=== PATIENT | female | born 1995 | race Caucasian/White ===

== ENCOUNTER 2016-09-13 15:55 | Emergency (ER) | payer OTHER, BC ==
[2016-09-13] MEDS ORDERED: MORPHINE SULFATE 2 MG/1 ML IV ONE (16:20)
[2016-09-13] MEDS ORDERED: Sodium Chloride 0.9% 1,000 ML PRIMARY IV ONE (16:20)
[2016-09-13] MEDS ORDERED: NORMAL SALINE 10 ML SYRINGE FLUSH IVP PRN (16:20)
[2016-09-13] MEDS ORDERED: ONDANSETRON 4 MG/2 ML VIAL IVP ONE ×2 (16:20→20:29)
[2016-09-13 16:38] VITALS: TEMP 97.1
[2016-09-13 17:00] VITALS: RESP 16
[2016-09-13 17:07] LABS: HEMATOCRIT 40.8 % (37.0-47.0); HEMOGLOBIN 14.4 g/dL (12.0-16.0); MEAN CORPUSCULAR HEMOGLOBIN 29.6 PG (27-31); MEAN CORPUSCULAR VOLUME 83.8 FL (81-99); RED BLOOD COUNT 4.87 10^6/uL (4.20-5.40)
[2016-09-13 17:08] LABS: EOSINOPHILS % (AUTO) 0.8 % (0-8); MEAN CORPUSCULAR HGB CONC 35.3 g/dL (33-37); MEAN PLATELET VOLUME 9.2 FL (7.4-12.2); MONOCYTES % (AUTO) 7.7 % (5-15); NEUTROPHILS % (AUTO) 62.9 % (50-80)
[2016-09-13 17:09] LABS: BASOPHILS # (AUTO) 0.07 10*3/UL; BASOPHILS % (AUTO) 0.7 % (0-1); EOSINOPHILS # (AUTO) 0.08 10*3/UL; LYMPHOCYTES # (AUTO) 2.69 10*3/uL; MONOCYTES # (AUTO) 0.75 10*3/UL (0.3-0.8); NEUTROPHILS # (AUTO) 6.08 10*3/UL; PLATELET MORPHOLOGY COMMENT NORMAL MORPHOLOGY (NORM); RBC MORPHOLOGY COMMENT NORMAL MORPHOLOGY (NORM); WBC MORPHOLOGY COMMENT NORMAL MORPHOLOGY (NORM)
[2016-09-13 17:10] LABS: BILIRUBIN,URINE NEGATIVE (NEG); CLARITY,URINE CLEAR (CLEAR); COLOR,URINE YELLOW; GLUCOSE, URINE (UA) NEGATIVE (NEG); NITRATE,URINE NEGATIVE (NEG); OCCULT BLOOD,URINE SMALL (NEG); PROTEIN,URINE NEGATIVE (NEG); UROBILINOGEN,URINE 0.2 EU/dL (0.2)
[2016-09-13 17:15] LABS: SQUAMOUS EPITHELIAL CELL,UR MANY; URINE SAMPLE TYPE VOIDED SPECIMEN; WBC,URINE 0-1
[2016-09-13 17:28] LABS: BLOOD UREA NITROGEN 10 mg/dL (7-22); BUN/CREATININE RATIO 11.11 (6-20); C-REACTIVE PROTEIN 1.4 mg/dL (0.0-0.9); CALCIUM 9.1 mg/dL (8.7-10.7); EST GLOMERULAR FILTRATION > 60 (>60 ml/min/1.73m(2)); LIPASE 86 IU/L (23-300); SERUM ALBUMIN 4.1 g/dL (3.5-4.8)
[2016-09-13] MEDS ORDERED: KETOROLAC 15 MG/1 ML VIAL IVP ONE (17:43)
[2016-09-13] MEDS ORDERED: MORPHINE SULFATE 2 MG/1 ML IVP ONE (17:44)
--- NOTE | 2016-09-13 18:46 | DI ---
PELVIC ULTRASOUND, 09/13/2016 5:44 PM Clinical History: Pelvic pain. Previous Exam: None at this facility. Technique: Transabdominal scans are performed. The uterus measures 45 x 60 x 80 mm and has a normal appearance. The central uterine stripe measures 7 mm. The ovaries are normal and demonstrate vascular flow. There are no fluid collections or masses. Reading: Normal pelvic ultrasound. Both ovaries are visualized and demonstrate normal flow.
[2016-09-13] MEDS ORDERED: fentaNYL Inj 100 MCG/2 ML VIAL IVP ONE (18:51)
[2016-09-13] MEDS ORDERED: oxyCODONE-ACETAMINOPHEN 5-325 TAB PO ONE (19:43)
[2016-09-13] MEDS ORDERED: cefTRIAXone Inj 500 MG in Sodium Chloride 0.9% 100 ML IV ONE (19:43)
[2016-09-13] MEDS ORDERED: HYDROmorphone 2 MG/1 ML IVP ONE (20:29)
[2016-09-13] MEDS ORDERED: oxyCODONE-ACETAMINOPHEN 5-325 TAB PO SCH (20:30)
[2016-09-13] MEDS ORDERED: DOXYCYCLINE HYCLATE 100 MG CAPSULE PO SCH (20:30)
--- NOTE | 2016-09-13 21:38 | DI ---
HISTORY: Abdominal pain. COMPARISON: None available. TECHNIQUE: Contrast-enhanced images of the abdomen and pelvis were obtained and submitted for interp retation. FINDINGS: Limited sections of the lung bases demonstrate no focal pulmonary mass. There are left ba silar opacities. The liver and spleen return a normal attenuation. The gallbladder is the of calculi. The pancreas i s grossly unremarkable. Both kidneys enhance normally. There is no focal adrenal mass. The aorta a nd IVC demonstrate no acute findings. The stomach is collapsed. There is moderate to severe constipation. There are sutures in the lower quadrant. There is no free air or free fluid. The uterus is anteverted. Bilateral adnexal densities are favored to be ovarian in origin. The endo metrium is thickened. The urinary bladder is distended. Correlation pelvic ultrasound recommended. There is fecal retention the rectum. Thickening of the sigmoid colon is probably due to peristalsis. Consider correlation peristalsis. The visualized osseous structures demonstrate no destructive abnormality. IMPRESSION: 1. No CT evidence of acute intra-abdominal or pelvic pathology. 2. Left basilar opacities.
--- NOTE | 2016-09-13 23:26 | PDOC ---
Abdomen/Flank HPI - General Chief Complaint: Abdomen Pain Stated Complaint: Abd. pain w/ some bleeding Date Seen by Provider: 09/13/16 Time Seen by Provider: 16:05 Source: POSITIVE: Patient Exam Limitations: POSITIVE: No limitations Nurse's Notes Reviewed & Considered: Yes - History of Present Illness Initial Comments: The patient is a 21-year-old female with no prior who presents to the emergency department with lower abdominal pain and vaginal bleeding. She states that she presented to her vice president of news in [place] with complaints of pelvic pain and vaginal bleeding. Her physician had done a pelvic exam and subsequently referred her to the emergency room to rule out possible ectopic . The patient reports that she does take oral control pills. She has not had a positive test. She states that she had some whitish colored discharge for the past couple of days. Today she started spotting and having some vaginal bleeding. She also has developed lower abdominal pain which is primarily in the mid abdomen and not to one side or the other. The pain is worsened after urination however she does not have any burning with urination. She denies fevers or chills, nausea vomiting. She does have a history of arrhythmia and is currently not taking any medication for this as the medications that she took previously seem to make it worse. She does report some increased palpitations throughout the day today since onset of her pain. She has had previous appendectomy when she was young. Her physician in [place] had contacted Dr. Abdi here in [place] and he recommended that the patient come to the emergency room. - Patient Home Medications Home Medications: Home Medications Doxycycline Hyclate 100 mg PO Q12H #20 cap 09/13/16 Norgestimate-Ethinyl Estradiol [Mononessa] 1 each PO DAILY 09/13/16 oxyCODONE/APAP 5/325 Tab [Percocet 5/325 Tab] 1 - 2 tab PO Q6H PRN #15 tab - Patient Allergies Allergies/Adverse Reactions: Allergies Allergy/AdvReac Type Severity Reaction Status Date / Time No Known Allergies Allergy Verified 09/13/16 16:22 Past Medical History - heen HEENT History: Denies History Cardiovascular History: Arrhythmia Additional Cardiovasular History: extra beat- unknown has MD. Rader- hasn't had an appointment yet due to insurance. Palpatations- every day. Respiratory History: Denies History Gastrointestinal History: Denies History Genitourinary History: Denies History Endocrine History: Denies History Musculoskeletal History: Denies History Prosthesis or Implant: No Additional Musculoskeletal History: Rt. Hip surgeries x2 Neurological History: Denies History Blood Disorders: Denies History Psychiatric History: Denies History History of Sexually Transmitted Diseases: No Female Reproductive History: Denies History LMP: ending-02 of september : 0 Para: 0 Cancer History: Denies History In Past Year Been Physically Harmed or Verbally Threatened: No History of MDRO: No History of Other Communicable Diseases: No Tobacco Use: Never Smoker Alcohol Use: Occasionally Substance Use Type: None Previous Surgical History: Yes Type / Date of Surgery: Rt. Hip x2. apendectomy at 12y/o Anesthesia Reactions: No Malignant Hyperthermia: No Family History of Malignant Hyperthermia: No Significant Family History: No pertinent family hx Past Medical History Reviewed: Reviewed - No Changes ROS - Limitations ROS Limitations: No Limitations Constitution: DENIES: Chills, Fever Cardiovascular: REPORTS: Denies Cardiac Symptoms Respiratory: REPORTS: Denies Resp Symptoms Neurological: REPORTS: Denies Neuro Symptoms Gastrointestinal: REPORTS: Abdominal Pain, Nausea, Constipation (She reports chronic constipation although she states more recently her bowel movements have been more regular). DENIES: Vomitting, Diarrhea Musculoskeletal: REPORTS: Denies MS Symptoms Genitourinary: DENIES: Dysuria, Flank Pain, Hematuria, Difficulty Urinating Eyes: REPORTS: Denies Symptoms ENT: REPORTS: Denies Symptoms Skin: DENIES: Rash Abdominal/Flank Pain PE - General Appearance General Appearance: POSITIVE: Alert, Cooperative, No Acute Distress - HEENT HEENT: POSITIVE: Head Inspection Nml, Eyes Inspection Nml, Ears Inspection Nml, Pharynx Inspect. Nml, PERRL, EOMI - Neck Neck: POSITIVE: Normal Inspection - Respiratory Respiratory: POSITIVE: No Respiratory Distress, Breath Sounds Normal - Cardiovascular Cardiovascular: POSITIVE: Regular Rate and Rhythm, Heart Sounds Normal - Abdomen Abdomen: Soft: (All Quadrants), Normal Bowel Sounds: (All Quadrants), No Guarding: (All Quadrants), No Rebound: (All Quadrants) Additional Abdominal Details: She does have tenderness in the suprapubic region without guarding or rebound tenderness, no palpable mass - Genital / Rectal Pelvic: POSITIVE: Other (Pelvic exam reveals whitish colored discharge in the vaginal vault, she does have tenderness to the uterus and adnexa, no bleeding noted) - Back Back: POSITIVE: Normal Inspection. NEGATIVE: CVA Tenderness (R), CVA Tenderness (L) - Skin Skin: POSITIVE: Intact, No Rash - Extremities Extremity: Normal ROM: (All Extremities), Normal Inspection: (All Extremities) - Neurological Neurological: POSITIVE: Oriented X3, Motor Normal, Sensation Normal Abdomen Progress - Results Reviewed by me Xrays/CTs/US Reviewed by me: Yes Discussed with Radiologist: Yes Radiology Findings: Pelvic ultrasound reveals good blood flow to both ovaries, no acute findings per radiologist. CT scan of the abdomen and pelvis reveals moderate to severe constipation with no other acute findings per radiologist. Lab Results:: Laboratory Results 09/13/16 09/13/16 Range/Units 16:28 17:07 WBC 9.68 (4.8-10.8) 10^3/uL RBC 4.87 (4.20-5.40) 10^6/uL Hgb 14.4 (12.0-16.0) g/dL Hct 40.8 (37.0-47.0) % MCV 83.8 (81-99) FL MCH 29.6 (27-31) PG MCHC 35.3 (33-37) g/dL RDW Std Deviation 37.5 L (39-50) fL RDW Coeff of Stan 12.5 (11.5-14.5) % Plt Count 334 (140-350) 10*3/uL MPV 9.2 (7.4-12.2) FL Immature Gran % (Auto) 0.1 (0-5) % Neut % (Auto) 62.9 (50-80) % Lymph % (Auto) 27.8 (10-50) % Martin % (Auto) 7.7 (5-15) % Eos % (Auto) 0.8 (0-8) % Baso % (Auto) 0.7 (0-1) % Immature Gran # (Auto) 0.01 10*3/UL Neut # (Auto) 6.08 10*3/UL Lymph # (Auto) 2.69 10*3/uL Martin # (Auto) 0.75 (0.3-0.8) 10*3/UL Eos # (Auto) 0.08 10*3/UL Baso # (Auto) 0.07 10*3/UL WBC Morphology Comment Normal morphology (NORM) Plt Morphology Comment Normal morphology (NORM) RBC Morph Comment Normal morphology (NORM) Sodium 138 (135-145) meq/L Potassium 3.7 L (3.8-5.2) meq/L Chloride 107 (98-112) meq/L Carbon Dioxide 21 L (23-33) meq/L Anion Gap 10 (5-20) BUN 10 (7-22) mg/dL Creatinine 0.9 (0.50-1.20) mg/dL Estimated GFR > 60 (>60 ml/min/1.73m(2)) BUN/Creatinine Ratio 11.11 (6-20) Glucose 84 (78-110) mg/dL Calculated Osmolality 283.0 (267-292) mOsm/kg Calcium 9.1 (8.7-10.7) mg/dL Total Bilirubin 0.6 (0.3-1.2) mg/dL AST 12 (8-39) IU/L ALT 13 (9-52) IU/L Alkaline Phosphatase 42 (38-126) IU/L C-Reactive Protein 1.4 H (0.0-0.9) mg/dL Total Protein 7.1 (6.1-8.0) g/dL Albumin 4.1 (3.5-4.8) g/dL Globulin 3.0 (2.50-4.10) g/dL Albumin/Globulin Ratio 1.30 (1.3-2.0) mg/g Amylase 64 (30-110) U/L Lipase 86 (23-300) IU/L Serum HCG, Qual Negative Ur Collection Type Voided specimen Urine Color Yellow Urine Clarity Clear (CLEAR) Urine pH 7.0 (5.0-8.5) Ur Specific [place] 1.015 (1.005-1.030) Urine Protein Negative (NEG) mg/dl Urine Glucose (UA) Negative (NEG) mg/dL Urine Ketones Negative (NEG) Urine Occult Blood Small H (NEG) Urine Nitrate Negative (NEG) Urine Bilirubin Negative (NEG) Urine Urobilinogen 0.2 (0.2) EU/dL Ur Leukocyte Esterase Negative (NEG) Urine RBC 5-7 (NONE) /hpf Urine WBC 0-1 (NONE) Ur Squamous Epith Cells Many (NONE) Ur Renal Epithelial Cell None (NONE) Urine Crystals None Urine Bacteria None (NONE) Urine Casts None (NONE) Urine Mucus None (NONE) Urine Trichomonas None (NONE) Urine Yeast None (NONE) Ur Culture Indicated? Culture not set - Patient's Progress MDM / ED Course: On arrival the patient was rating her pain an 8 out of 10. She was sent to the emergency room because of concern about possible ectopic or ovarian to poor vision. Her initial blood work revealed a negative hCG ruling out related issues. She had an ultrasound which did not reveal any evidence of torsion or any other acute abnormality. Her white blood cell count is normal and she has a mildly elevated CRP. Her pelvic exam reveals a uterus which is tender to even minimal palpation. I did discuss the patient with Dr. Abdi since he was aware that the patient was coming to the emergency department. At this point she will be treated for possible PID. She was given morphine and Zofran initially for pain when she arrived which did not seem to help much. She subsequently received morphine and Toradol for additional pain relief. After ultrasound she had worsening pain again and received fentanyl 50 g as well as Percocet 2 by mouth for pain. She received Rocephin 500 mg IV. Preparations were made for discharge however on reevaluation she reported that her pain seemed even worse. Repeat abdominal exam revealed generalized abdominal tenderness. Subsequently CT scan of the abdomen and pelvis with IV contrast was ordered and this was found to be unremarkable except for moderate to severe constipation which the patient has chronically. These findings were discussed with the patient. At this point the most likely etiology of her pelvic pain is a pelvic infection. I did offer to admit the patient to the hospital however she preferred to try to go home. She was started on doxycycline 100 mg twice a day for 10 days. In addition she was given Percocet as needed for pain. She is advised return to the emergency room if she develops increased pain, fever, worsening or change in symptoms. She is advised follow-up with her vice president of news in [place] within 2-3 days. - Consult Counseled: POSITIVE: Patient, RE: Lab Results, RE: Radiology Results, RE: DX, RE : Need for F/U Patient Care Time - Estimated PCT Patient Care Time (In Minutes): 55 Vital Signs - VS Reviewed Vital Signs Reviewed: Yes Discharge Clinical Impression: Pelvic pain Discharge Disposition: Discharged to Home Condition: Stable Prescriptions / Orders: Doxycycline Hyclate 100 mg PO Q12H #20 cap oxyCODONE/APAP 5/325 Tab [Percocet 5/325 Tab] 1 - 2 tab PO Q6H PRN #15 tab PRN Reason: Pain Patient Instructions Given at Discharge: Pelvic Pain in Women (ED) Additional Instructions: The exact cause of your pelvic pain remains unclear however is thought to be possibly secondary to a uterine infection. Your blood work was all essentially normal except for a mild elevated inflammatory marker. The urinalysis did not show any evidence of infection. Your test was negative. The ultrasound did not show any evidence of twist of the ovary, ovarian cyst or any other abnormality. These findings were discussed with Dr. Abdi who is on- call for ENGINEERING MANAGER. He recommended treatment with antibiotics and pain medicine with follow-up. Because of the continued pain a CAT scan of the abdomen and pelvis was also done which shows constipation and some mild thickening of the uterine wall. You have been started on doxycycline 100 mg twice a day for 10 days. Recommend ibuprofen 600 mg every 6 hours as needed for pain. In addition your been prescribed Percocet 5/325 which he can take one or 2 every 4- 6 hours as needed for pain. Return to the emergency room if increased pain, fever, vomiting or dehydration, any worsening or change in symptoms. Follow-up with your ENGINEERING MANAGER physician in 2-3 days. Follow Up With: Kalyan Gomez [Primary Care Provider] -
== END 2016-09-13 22:05 | disposition home or self-care (01) ==
LOC: ER 15:55
DX: R10.2 Pelvic and perineal pain (principal); R10.31 Right lower quadrant pain; N93.9 Abnormal uterine and vaginal bleeding, unspecified; R10.32 Left lower quadrant pain; R11.0 Nausea; K59.09 Other constipation
CPT/HCPCS: 74177; 76856; 80053; 81001; 81003; 82150; 83690; 84703; 85025; 86140; 87480; 87510; 87660; 96365; 96375; 96376; 99283 ×2; J0696; J1885; J2270; J2405; J3010; J7030; J7050